=== PATIENT | male | born 2000 | race Caucasian/White ===

== ENCOUNTER 2023-05-09 11:52 | Emergency (ER) | payer BC ==
[2023-05-09 12:16] VITALS: BP 142/84; PULSE 67; RESP 18; TEMP 98.4
--- NOTE | 2023-05-09 12:41 | ED ---
Allergic Reaction HPI - General Chief complaint: Allergic Reaction Stated complaint: allergic reaction/bee sting Time Seen by Provider: 05/09/23 12:01 Source: patient Mode of arrival: ambulatory Limitations: no limitations - History of Present Illness Initial Comments: Grayson is a healthy 23yo M who presents to the ER via private vehicle for evaluation of a bee sting to the right ring finger that occurred at 10:30am today. Patient has no history of ALLERGY to bee sting. Patient states that after being stung he noted his hand was swelling but also had some swelling around his eyes. He had no shortness of breath or wheezing. Patient took 75 mg of by mouth Benadryl he states he visited to urgent cares who declined to evaluate him before coming to the ER but by the time he arrived here the swelling of the space enhancing to be improving he still had no shortness of breath nausea or vomiting or any other complaints. - Related Data Previous Rx's Medication Instructions Recorded EPINEPHrine (Auto Inject) [Epipen] 0.3 mg IM ONCE PRN #1 each 05/09/23 Allergies Allergy/AdvReac Type Severity Reaction Status Date / Time No Known Allergies Allergy Verified 05/09/23 11:56 Review of Systems ROS Statement: Those systems with pertinent positive or pertinent negative responses have been documented in the HPI. ROS Other: All systems not noted in ROS Statement are negative. Past Medical History Past Medical History: No Reported History History of Any Multi-Drug Resistant Organisms: None Reported Past Surgical History: No Surgical Hx Reported Smoking Status: Never smoker Past Alcohol Use History: None Reported Past Drug Use History: None Reported General Exam - General Exam Comments Initial Comments: Physical Exam GENERAL: Patient is well-developed and well-nourished. Patient is nontoxic and well-hydrated and is in no distress. HENT: Normocephalic, Atraumatic. EYES: PERRL, EOMI PULMONARY: Unlabored respirations. No Wheezing CARDIOVASCULAR: RRR Warm and well perfused extremities ABDOMEN: Non-distended SKIN: Some redness and swelling of the dorsum of the right hand, no hives : Deferred NEUROLOGIC: Alert and oriented Normal speech MUSCULOSKELETAL: Moving all extremities with no apparent injury PSYCHIATRIC: No SI/HI Limitations: no limitations Course Vital Signs 05/09/23 05/09/23 11:53 12:12 Temperature 98.3 F 98.4 F Pulse Rate 80 67 Respiratory 16 18 Rate Blood Pressure 140/83 142/84 O2 Sat by Pulse 99 99 Oximetry Medical Decision Making - Medical Decision Making Patient was seen and evaluated, history obtained from patient, physical exam reveals improving local reaction without systemic reaction. Patient stable for discharge home. Will be prescribed epipen for future exposures. Was pt. sent in by a medical professional or institution (EVERTON Pierce, FLIGHT OPERATIONS INSPECTOR, urgent care, hospital, or [place] [facility] facility...) When possible be specific @ -No Did you speak to anyone other than the patient for history (EMS, parent, family, police, friend...)? What history was obtained from this source @ -No Did you review nursing and triage notes (agree or disagree)? Why? @ -I reviewed and agree with nursing and triage notes Were old charts reviewed (outside hosp., previous admission, EMS record, old EKG, old radiological studies, urgent care reports/EKG's, [place] [facility] records)? Report findings @ -No old charts were reviewed Differential Diagnosis (chest pain, altered mental status, abdominal pain women, abdominal pain men, vaginal bleeding, weakness, fever, dyspnea, syncope, headache, dizziness, GI bleed, back pain, seizure, CVA, palpatations, mental health, musculoskeletal)? @ -not applicable EKG interpreted by me (3pts min.). @ -As above X-rays interpreted by me (1pt min.). @ -None done CT interpreted by me (1pt min.). @ -None done U/S interpreted by me (1pt. min.). @ -None done What testing was considered but not performed or refused? (CT, X-rays, U/S, labs)? Why? @ -None What meds were considered but not given or refused? Why? @ -Epinephrine, not given as there is no systemic signs of ALLERGIC reaction Did you discuss the management of the patient with other professionals (professionals i.e. EVERTON Pierce, FLIGHT OPERATIONS INSPECTOR, lab, RT, psych nurse, social media content specialist, appian bpm developer, teacher, staff combat information center officer, case sealer)? Give summary @ -No Was smoking cessation discussed for >3mins.? @ -No Was critical care preformed (if so, how long)? @ -No Were there social determinants of health that impacted care today? How? (Homelessness, low income, unemployed, alcoholism, drug addiction, transportation, low edu. Level, literacy, decrease access to med. care, longterm, rehab)? @ -No Was there de-escalation of care discussed even if they declined (Discuss DNR or withdrawal of care, Hospice)? DNR status @ -No What co-morbidities impacted this encounter? (DM, HTN, Smoking, COPD, CAD, Cancer, CVA, ARF, Chemo, Hep., AIDS, mental health diagnosis, sleep apnea, morbid obesity)? @ -None Was patient admitted / discharged? Hospital course, mention meds given and route, prescriptions, significant lab abnormalities, going to OR and other pertinent info. @ -Discharge Undiagnosed new problem with uncertain prognosis? @ -No Drug Therapy requiring intensive monitoring for toxicity (Heparin, Nitro, Insulin, Cardizem)? @ -No Were any procedures done? @ -No Diagnosis/symptom? @ -Bee Sting Acute, or Chronic, or Acute on Chronic? @ -Acute Uncomplicated (without systemic symptoms) or Complicated (systemic symptoms)? @ -Uncomplicated Side effects of treatment? @ -No Exacerbation, Progression, or Severe Exacerbation? @ -No Poses a threat to life or bodily function? How? (Chest pain, [place], [place], pneumonia, PE, COPD, DKA, ARF, appy, cholecystitis, CVA, Diverticulitis, Homicidal, Suicidal, threat to staff... and all critical care pts) @ -, Anaphylaxis potentially fatal Disposition Clinical Impression: Bee sting reaction Disposition: HOME SELF-CARE Condition: Stable Instructions (If sedation given, give patient instructions): Anaphylaxis (ED) Prescriptions: EPINEPHrine (Auto Inject) [Epipen] 0.3 mg IM ONCE PRN #1 each PRN Reason: Anaphylaxis Is patient prescribed a controlled substance at d/c from ED?: No Referrals: None,Stated [Primary Care Provider] - 1-2 days
== END 2023-05-09 12:55 | disposition home or self-care (01) ==
LOC: EC 11:52
DX: T63.441A Toxic effect of venom of bees, accidental (unintentional), initial encounter (principal)
CPT/HCPCS: 99283